=== PATIENT | female | born 1985 | race Two or more races ===

== ENCOUNTER 2024-10-07 13:39 | Emergency (ER) | payer MEDICAID, SELFPAY ==
[2024-10-07 13:40] VITALS: BMI 17.9
[2024-10-07 13:54] VITALS: BP 130/91; PULSE 110; RESP 18; TEMP 37.2; O2SAT 99
--- NOTE | 2024-10-07 14:07 | PD.EDURI ---
Upper Respiratory Inf. RME/HPI General Stated Complaint: Migraine x 2 day, runny nose, nausea, SOB, Time Seen by Provider: 10/07/24 13:58 Arrival date/time: 10/07/24 13:39 39-year-old female presents emergency department with complaints of frontal headache, sinus pressure, sinus pain headache runny nose and bodyaches ongoing for the last 2 days. Patient reports no chance of Limitations: no limitations Related Data Previous Rx's ?Medication ?Instructions ?Recorded naproxen 500 mg tablet 500 mg PO BID PRN pain #30 tabs 01/21/24 rizatriptan 10 mg disintegrating See Rx Instructions PO .COMPLEX 01/21/24 tablet (Maxalt-ELECTROPHYSIOLOGY TECHNOLOGIST) #30 tabs amoxicillin 875 mg-potassium 1 tab PO BID 7 days #14 tabs 10/07/24 clavulanate 125 mg tablet ibuprofen 600 mg tablet 600 mg PO Q6H #30 tabs 10/07/24 Allergies Allergy/AdvReac Type Severity Reaction Status Date / Time No Known Allergies Allergy Verified 03/20/24 18:02 Review of Systems Review of Systems Systems Reviewed: All systems reviewed, normal except as documented Constitutional Constitutional: Reports system reviewed and no additional complaints, except as documented, Denies fever(s) and Reports headache(s) Eyes Eyes: Reports system reviewed and no additional complaints, except as documented and Denies blurry vision ENT Ears, Nose, Mouth, and Throat: Reports system reviewed and no additional complaints, except as documented, Reports headache(s), Reports nasal congestion and Reports nasal discharge Cardiovascular Cardiovascular: Reports system reviewed and no additional complaints, except as documented, Denies chest pain and Denies dyspnea Respiratory Respiratory: Reports system reviewed and no additional complaints, except as documented, Denies chest congestion, Denies cough and Denies dyspnea Gastrointestinal Gastrointestinal: Reports system reviewed and no additional complaints, except as documented and Denies abdominal pain Integumentary/Breasts Skin/Breast: Reports system reviewed and no additional complaints, except as documented and Denies rash Neurologic Neurologic: Reports system reviewed and no additional complaints, except as documented, Reports as per HPI and Reports headache(s) Past Medical History Past Medical History CARDIAC: Negative Congestive Heart Failure RESPIRATORY: Positive Asthma; Negative Chronic Obstructive Pulmonary Disease (COPD) GENITOURINARY: Negative Renal Disease ENDOCRINE: Negative Diabetes Mellitus Type 1 or Diabetes Mellitus Type 2 Social History SMOKING STATUS: Never smoker SUBSTANCE USE: does not use ED Exam General Limitations: Present no limitations General appearance: Present alert and in no apparent distress Head Head exam: Present atraumatic, normocephalic and normal inspection Eye Eye exam: Present normal appearance, PERRL and EOMI; Absent conjunctival injection ENT ENT exam: Present mucous membranes moist Expanded ENT Exam Nose exam: Present sinus tenderness Throat exam: Absent tonsillar erythema or tonsillomegaly Neck Neck exam: Present normal inspection, full ROM and trachea midline Chest Chest inspection: Present normal inspection and symmetric chest wall rise Respiratory Respiratory exam: Present normal lung sounds bilaterally; Absent respiratory distress Cardiovascular Cardiovascular exam: Present regular rate, normal rhythm and normal heart sounds Abdominal Exam Abdominal exam: Present soft and normal bowel sounds; Absent distention, tenderness, guarding, rebound or rigidity Extremities Exam Extremities exam: Present normal inspection and full ROM Back Exam Back exam: Present normal inspection and full ROM Neurological Exam Neurological exam: Present alert, oriented X3 and CN II-XII intact Psychiatric Psychiatric exam: Present normal affect and normal mood Skin Skin exam: Present warm, dry, intact and normal color Course Quality Measures none Orders Category Date Time Status Bedside Influenza A&B Antigen Test NOW Care 10/07/24 13:59 Completed Vital Signs Vital signs: Vital Signs Temperature 98.9 F 10/07/24 13:54 Pulse Rate 110 H 10/07/24 13:54 Respiratory Rate 18 10/07/24 13:54 Blood Pressure 130/91 H 10/07/24 13:54 Pulse Oximetry (%) 99 10/07/24 13:54 Oxygen Delivery Method Room Air 10/07/24 13:54 O2 saturation 99% r/a wnl Upper Respiratory Infection MDM Narrative MDM Narrative:: 39-year-old female presents emergency department with complaints of frontal headache, sinus pressure, sinus pain headache runny nose and bodyaches ongoing for the last 2 days. Patient reports no chance of On exam patient well-appearing patient does not appear ill or toxic in no acute distress Patient checked for flu which came back negative Symptoms consistent with viral illness and also patient appears to have frontal sinusitis based on exam Patient will be treated course of antibiotics and pain medication Patient discharged home in no distress to follow-up with primary care doctor in the next 24 to 48 hours and for any worsening symptoms to return to the ER immediately Patient data External records reviewed:: [facility] previous records Clinical information provided by:: patient Social determinants that could affect healthcare access:: none Patient has the following chronic illnesses:: None How is presenting disease/condition affected by chronic disease/condition?: no chronic disease Evaluation data The following diagnostics were reviewed and interpreted by me:: lab results Lab and/or radiology exams considered but not ordered:: Lab obtained Interpretation Summary: Reviewed by me Medications / Prescriptions Medications or Prescriptions considered but not ordered:: Given Medication administrations:: Given Consultations Consultation(s) initiated? (list below): No Diagnosis Upper Respiratory Differential Diagnosis: upper respiratory infection, sinusitis, viral infection and pharyngitis Most likely diagnosis given after review of the tests above:: Viral illness Admission Indicated Admission indicated?: not indicated Admission Request Was there a request for admission?: No Disposition Plan Disposition Plan: Discharge Discharge Attestation Discharge Attestation: The patient and all family members were given an opportunity to ask questions and understood the discharge instructions. Discharge instructions specifically effects, indications for sooner follow up or return to the emergency department, and the expected course of current diagnosis. Patient condition: Stable Discharge Plan Plan Patient Disposition: HOME (Self Care) Disposition Comment: Stable Prescriptions/Referrals Prescriptions/Med Rec: New ibuprofen 600 mg tablet 600 mg PO Q6H Qty: 30 0RF amoxicillin-pot clavulanate 875-125 mg tablet 1 tab PO BID 7 Days Qty: 14 0RF No Action rizatriptan [Maxalt-ELECTROPHYSIOLOGY TECHNOLOGIST] 10 mg tablet,disintegrating See Rx Instructions .ROUTE .COMPLEX Qty: 30 0RF Rx Instructions: take 1 tab at onset of headache; if no relief may repeat 1 tab after at least 2 hrs; max = 3 tabs/24 hr naproxen 500 mg tablet 500 mg PO BID PRN (Reason: pain) Qty: 30 0RF Problem List Clinical Impression: Acute frontal sinusitis Patient/Caregiver Discharge Instructions Education Materials: Causes of Sinusitis Additional Instructions: Please follow up with your primary care doctor in the next 24-48hrs for any worsening symptoms return here immediately Print Language: Tunisian Stand Alone Forms: Renetta Award Info., Patient Portal Info Letter PA/PULL UP HAND Supervising Physician PA/PULL UP HAND Supervising Physician: Dr calix
== END 2024-10-07 14:15 | disposition home or self-care (01) ==
LOC: SERX 14:20
PROVIDERS: Emergency Provider Emergency Medicine; PCP Family Medicine
DX: J01.10 Acute frontal sinusitis, unspecified (principal)
CPT/HCPCS: 87400; 99283

== ENCOUNTER 2024-11-06 08:18 | Emergency (ER) | payer MEDICAID, SELFPAY ==
[2024-11-06 08:28] VITALS: BP 123/82; PULSE 108; RESP 20; TEMP 37.2; O2SAT 96; BMI 25.0
--- NOTE | 2024-11-06 08:33 | PD.EDURI ---
Upper Respiratory Inf. RME/HPI General Chief Complaint: Flu Like Symptoms Stated Complaint: FLU SYMPTOMS FEVER 99.1 Time Seen by Provider: 11/06/24 08:19 Arrival date/time: 11/06/24 08:18 39-year-old female presents emergency department complains of cough, congestion, body aches and fever patient for symptoms ongoing for last few days there are no other associated symptoms or aggravating factors no other modifying factors, patient denies taking medication before coming to ER today. Patient reports that her significant other tested positive for influenza yesterday Limitations: no limitations Related Data Previous Rx's ?Medication ?Instructions ?Recorded naproxen 500 mg tablet 500 mg PO BID PRN pain #30 tabs 01/21/24 rizatriptan 10 mg disintegrating See Rx Instructions PO .COMPLEX 01/21/24 tablet (Maxalt-INSTRUMENT ASSEMBLER) #30 tabs ibuprofen 600 mg tablet 600 mg PO Q6H #30 tabs 10/07/24 benzonatate 100 mg capsule 100 mg PO TID #14 caps 11/06/24 ibuprofen 600 mg tablet 600 mg PO Q6H #30 tabs 11/06/24 Allergies Allergy/AdvReac Type Severity Reaction Status Date / Time No Known Allergies Allergy Verified 11/06/24 08:20 Review of Systems Review of Systems Systems Reviewed: All systems reviewed, normal except as documented Constitutional Constitutional: Reports system reviewed and no additional complaints, except as documented, Reports body ache(s), Reports chills, Denies fever(s) and Reports headache(s) Eyes Eyes: Reports system reviewed and no additional complaints, except as documented and Denies blurry vision ENT Ears, Nose, Mouth, and Throat: Reports system reviewed and no additional complaints, except as documented, Reports headache(s), Reports nasal congestion and Reports nasal discharge Cardiovascular Cardiovascular: Reports system reviewed and no additional complaints, except as documented, Denies chest pain and Denies dyspnea Respiratory Respiratory: Reports system reviewed and no additional complaints, except as documented, Reports chest congestion, Reports cough and Denies dyspnea Gastrointestinal Gastrointestinal: Reports system reviewed and no additional complaints, except as documented and Denies abdominal pain Integumentary/Breasts Skin/Breast: Reports system reviewed and no additional complaints, except as documented and Denies rash Neurologic Neurologic: Reports system reviewed and no additional complaints, except as documented, Reports as per HPI and Reports headache(s) Past Medical History Past Medical History CARDIAC: Negative Congestive Heart Failure RESPIRATORY: Positive Asthma; Negative Chronic Obstructive Pulmonary Disease (COPD) GENITOURINARY: Negative Renal Disease ENDOCRINE: Negative Diabetes Mellitus Type 1 or Diabetes Mellitus Type 2 Social History SMOKING STATUS: Smoker, status unknown SUBSTANCE USE: does not use ED Exam General Limitations: Present no limitations General appearance: Present alert and in no apparent distress Head Head exam: Present atraumatic, normocephalic and normal inspection Eye Eye exam: Present normal appearance, PERRL and EOMI; Absent conjunctival injection ENT ENT exam: Present normal exam, normal oropharynx and mucous membranes moist Neck Neck exam: Present normal inspection, full ROM and trachea midline; Absent tenderness, meningismus or lymphadenopathy Chest Chest inspection: Present normal inspection and symmetric chest wall rise Respiratory Respiratory exam: Present normal lung sounds bilaterally Cardiovascular Cardiovascular exam: Present regular rate, normal rhythm and normal heart sounds Abdominal Exam Abdominal exam: Present soft and normal bowel sounds; Absent distention, tenderness, guarding, rebound or rigidity Extremities Exam Extremities exam: Present normal inspection and full ROM Back Exam Back exam: Present normal inspection and full ROM Neurological Exam Neurological exam: Present alert, oriented X3 and CN II-XII intact Psychiatric Psychiatric exam: Present normal affect and normal mood Skin Skin exam: Present warm, dry, intact and normal color Course Quality Measures none Vital Signs Vital signs: Vital Signs Temperature 98.9 F 11/06/24 08:28 Pulse Rate 108 H 11/06/24 08:28 Respiratory Rate 20 11/06/24 08:28 Blood Pressure 123/82 11/06/24 08:28 Pulse Oximetry (%) 96 11/06/24 08:28 Oxygen Delivery Method Room Air 11/06/24 08:28 O2 saturation 96% on room air within normal limits Upper Respiratory Infection MDM Narrative MDM Narrative:: 39-year-old female presents emergency department complains of cough, congestion, body aches and fever patient for symptoms ongoing for last few days there are no other associated symptoms or aggravating factors no other modifying factors, patient denies taking medication before coming to ER today. Patient reports that her significant other tested positive for influenza yesterday On exam patient does not appear ill or toxic patient reports no significant medical problems patient reports not Patient symptoms highly consistent with viral illness I suspect patient has flu Patient checked for influenza Patient tested positive for influenza Patient discharged home in no distress to follow-up with primary care doctor in the next 24 to 48 hours and for any worsening symptoms to return to the ER immediately Patient data External records reviewed:: [facility] previous records Clinical information provided by:: patient Social determinants that could affect healthcare access:: none Patient has the following chronic illnesses:: None How is presenting disease/condition affected by chronic disease/condition?: no chronic disease Evaluation data The following diagnostics were reviewed and interpreted by me:: lab results Lab and/or radiology exams considered but not ordered:: Lab obtain Interpretation Summary: Reviewed by me Medications / Prescriptions Medications or Prescriptions considered but not ordered:: Given Medication administrations:: Given Consultations Consultation(s) initiated? (list below): No Diagnosis Upper Respiratory Differential Diagnosis: upper respiratory infection, otitis media, sinusitis and viral infection Most likely diagnosis given after review of the tests above:: URI Admission Indicated Admission indicated?: not indicated Admission Request Was there a request for admission?: No Disposition Plan Disposition Plan: Discharge Discharge Attestation Discharge Attestation: The patient and all family members were given an opportunity to ask questions and understood the discharge instructions. Discharge instructions specifically effects, indications for sooner follow up or return to the emergency department, and the expected course of current diagnosis. Patient condition: Stable Discharge Plan Plan Patient Disposition: HOME (Self Care) Disposition Comment: Stable Prescriptions/Referrals Prescriptions/Med Rec: New benzonatate 100 mg capsule 100 mg PO TID Qty: 14 0RF ibuprofen 600 mg tablet 600 mg PO Q6H Qty: 30 0RF No Action rizatriptan [Maxalt-INSTRUMENT ASSEMBLER] 10 mg tablet,disintegrating See Rx Instructions .ROUTE .COMPLEX Qty: 30 0RF Rx Instructions: take 1 tab at onset of headache; if no relief may repeat 1 tab after at least 2 hrs; max = 3 tabs/24 hr naproxen 500 mg tablet 500 mg PO BID PRN (Reason: pain) Qty: 30 0RF ibuprofen 600 mg tablet 600 mg PO Q6H Qty: 30 0RF Problem List Clinical Impression: Influenza Patient/Caregiver Discharge Instructions Education Materials: ED Influenza (Adult) Additional Instructions: Please follow up with your primary care doctor in the next 24-48hrs for any worsening symptoms return here immediately Print Language: Kinyarwanda Stand Alone Forms: Renetta Award Info., Patient Portal Info Letter PA/PRINT SHOP ASSISTANT Supervising Physician PA/PRINT SHOP ASSISTANT Supervising Physician: kevin
== END 2024-11-06 10:23 | disposition home or self-care (01) ==
LOC: SERX 08:37
PROVIDERS: Emergency Provider Emergency Medicine; PCP Family Medicine
DX: J11.1 Influenza due to unidentified influenza virus with other respiratory manifestations (principal)
CPT/HCPCS: 99281

== ENCOUNTER 2025-04-16 18:38 | Emergency (ER) | payer MEDICAID, SELFPAY ==
[2025-04-16 18:39] VITALS: BMI 24.3
[2025-04-16 19:19] VITALS: BP 125/82; PULSE 89; RESP 20; TEMP 36.9; O2SAT 98
--- NOTE | 2025-04-16 19:23 | PD.EDEYE ---
ED Eye Problem RME/HPI General Chief complaint: Eye Problems Stated complaint: EYES ARE IRRITATED, DIFFICULTY SEEING Time Seen by Provider: 04/16/25 19:17 Arrival date/time: 04/16/25 18:38 39F with history of homelessness and psych presents to ED with 1 day of bilateral eye redness and irritation. Patient wears contacts and denies discharge. Some itching. Limitations: no limitations Related Data Previous Rx's ?Medication ?Instructions ?Recorded naproxen 500 mg tablet 500 mg PO BID PRN pain #30 tabs 01/21/24 rizatriptan 10 mg disintegrating See Rx Instructions PO .COMPLEX 01/21/24 tablet (Maxalt-HEAD OF HOUSEKEEPING) #30 tabs ibuprofen 600 mg tablet 600 mg PO Q6H #30 tabs 10/07/24 benzonatate 100 mg capsule 100 mg PO TID #14 caps 11/06/24 ibuprofen 600 mg tablet 600 mg PO Q6H #30 tabs 11/06/24 tobramycin 0.3 % eye drops 2 drp ophthalmic (eye) Q6H 1 week 04/16/25 #5 mL Allergies Allergy/AdvReac Type Severity Reaction Status Date / Time No Known Allergies Allergy Verified 04/16/25 18:41 Review of Systems Review of Systems Systems Reviewed: All systems reviewed, normal except as documented Constitutional Constitutional: Reports system reviewed and no additional complaints, except as documented, Denies fever(s) and Denies headache(s) ENT Ears, Nose, Mouth, and Throat: Denies disequilibrium and Denies headache(s) Cardiovascular Cardiovascular: Reports system reviewed and no additional complaints, except as documented, Denies chest pain and Denies dyspnea Respiratory Respiratory: Reports system reviewed and no additional complaints, except as documented, Denies cough and Denies dyspnea Gastrointestinal Gastrointestinal: Reports system reviewed and no additional complaints, except as documented, Denies abdominal pain, Denies nausea and Denies vomiting Neurologic Neurologic: Reports system reviewed and no additional complaints, except as documented, Denies confusion, Denies disequilibrium and Denies headache(s) Psychiatric Psychiatric: Denies confusion Past Medical History Past Medical History CARDIAC: Negative Congestive Heart Failure RESPIRATORY: Positive Asthma; Negative Chronic Obstructive Pulmonary Disease (COPD) GENITOURINARY: Negative Renal Disease ENDOCRINE: Negative Diabetes Mellitus Type 1 or Diabetes Mellitus Type 2 Social History SMOKING STATUS: Former smoker SUBSTANCE USE: does not use ED Exam General Limitations: Present no limitations General appearance: Present alert and in no apparent distress Head Head exam: Present atraumatic Eye Eye exam: Present PERRL and EOMI Expanded Eye Exam Sclera/Conjunctival: bilateral: injection (mild) ENT ENT exam: Present normal exam, normal oropharynx and mucous membranes moist Neck Neck exam: Present normal inspection, full ROM and trachea midline Chest Chest inspection: Present normal inspection and symmetric chest wall rise Respiratory Respiratory exam: Present normal lung sounds bilaterally Cardiovascular Cardiovascular exam: Present regular rate, normal rhythm and normal heart sounds Abdominal Exam Abdominal exam: Present soft and normal bowel sounds Extremities Exam Extremities exam: Present normal inspection and full ROM Back Exam Back exam: Present normal inspection and full ROM Neurological Exam Neurological exam: Present alert, oriented X3 and CN II-XII intact Psychiatric Psychiatric exam: Present normal affect and normal mood Skin Skin exam: Present warm, dry, intact and normal color Course Quality Measures none Orders Category Date Time Status ED Eye Irrigation ONCE Care 04/16/25 20:02 Active Castro Lamp to Bedside X1 Care 04/16/25 19:21 Active Erythromycin Op Oint 0.5% Med 04/16/25 19:21 Discontinued 1 gm BOTH EYES X1 ONE Fluorescein Sodium [Bio-Radha] Med 04/16/25 19:21 Discontinued 1 mg BOTH EYES X1 ONE Tobramycin Op Cassidy 0.3% [Tobrex Op Cassidy 0.3%] Med 04/16/25 20:06 Discontinued See Dose Instructions BOTH EYES X1 ONE Vital Signs Vital signs: Vital Signs Temperature 98.4 F 04/16/25 19:19 Pulse Rate 89 04/16/25 19:19 Respiratory Rate 20 04/16/25 19:19 Blood Pressure 125/82 04/16/25 19:19 Pulse Oximetry (%) 98 04/16/25 19:19 Oxygen Delivery Method Room Air 04/16/25 19:19 O2 at 98% on RA and WNLs Eye MDM Narrative MDM Narrative:: 39F with history of homelessness and psych presents to ED with 1 day of bilateral eye redness and irritation. Patient wears contacts and denies discharge. Some itching. Physical exam reveals bilateral red eyes, but no drainage/discharge. Normal pupil response and EOM. Patient is afebrile, alert, calm, and on a video chat phone call. Wood's lamp exam reveals no obvious abnormality. Eyes irrigated and patient felt better. Meds and day camp counselor given. Patient data External records reviewed:: [facility] previous records Clinical information provided by:: patient Social determinants that could affect healthcare access:: housing Patient has the following chronic illnesses:: homelessness and psych How is presenting disease/condition affected by chronic disease/condition?: exacerbated by Evaluation data The following diagnostics were reviewed and interpreted by me:: other (specify) (none) Lab and/or radiology exams considered but not ordered:: not ordered Interpretation Summary: n/a Medications / Prescriptions Medications or Prescriptions considered but not ordered:: ordered Medication administrations:: Medication Administration History Discontinued Medications Erythromycin (Erythromycin Op Oint 0.5% 1 Gm Packet) 1 gm BOTH EYES X1 ONE Stop: 04/16/25 19:22 Last Admin: 04/16/25 19:50 Dose: 1 gm Documented By: ERASMO Co-signed By: ZAN Fluorescein Sodium (Fluorescein Sod 1 Mg Strp) 1 mg BOTH EYES X1 ONE Stop: 04/16/25 19:22 Last Admin: 04/16/25 19:50 Dose: 1 mg Documented By: ERASMO Tobramycin Sulfate (Tobramycin Op Cassidy 0.3% 5 Ml Btl) 0 drop BOTH EYES X1 ONE Stop: 04/16/25 20:07 Last Admin: 04/16/25 20:27 Dose: 75 drop Documented By: above Consultations Consultation(s) initiated? (list below): No Diagnosis Eye Problem Differential Diagnosis: corneal abrasion, conjunctivitis, acute iritis, hyphema, periorbital cellulitis, subconjunctival hemorrhage, glaucoma, corneal ulcer and ruptured globe Most likely diagnosis given after review of the tests above:: eye irritation Admission Indicated Admission indicated?: not indicated Admission Request Was there a request for admission?: No Disposition Plan Disposition Plan: Discharge Discharge Attestation Discharge Attestation: The patient and all family members were given an opportunity to ask questions and understood the discharge instructions. Discharge instructions specifically effects, indications for sooner follow up or return to the emergency department, and the expected course of current diagnosis. Patient condition: Stable Discharge Plan Plan Patient Disposition: HOME (Self Care) Discharge Disposition comment: Stable Prescriptions/Referrals Prescriptions/Med Rec: New tobramycin 0.3 % drops 2 drp ophthalmic (eye) Q6H 7 Days Qty: 5 0RF No Action rizatriptan [Maxalt-HEAD OF HOUSEKEEPING] 10 mg tablet,disintegrating See Rx Instructions .ROUTE .COMPLEX Qty: 30 0RF Rx Instructions: take 1 tab at onset of headache; if no relief may repeat 1 tab after at least 2 hrs; max = 3 tabs/24 hr naproxen 500 mg tablet 500 mg PO BID PRN (Reason: pain) Qty: 30 0RF ibuprofen 600 mg tablet 600 mg PO Q6H Qty: 30 0RF benzonatate 100 mg capsule 100 mg PO TID Qty: 14 0RF ibuprofen 600 mg tablet 600 mg PO Q6H Qty: 30 0RF Referrals: Blayne Ramos MD [Primary Care Provider] - In 1 week Problem List Clinical Impression: Eye irritation Clinical Impression: (Ruled Out): Periorbital cellulitis Patient/Caregiver Discharge Instructions Education Materials: ED Conjunctivitis, Nonspecific Additional Instructions: Please follow-up with PCP within 24-48 hours and return immediately if symptoms worsen. Stop using drop if worsening irritation. Print Language: Belarusian Stand Alone Forms: Patient Portal Info Letter JASPER/BEENA Supervising Physician JASPER/BEENA Supervising Physician: Dr. Johnston
[2025-04-16] MEDS: FLUORESCEIN SOD 1 MG STRP BOTH EYES (19:50)
[2025-04-16] MEDS: Erythromycin Op Oint 0.5% 1 GM PACKET BOTH EYES (19:50)
[2025-04-16] MEDS: TOBRAMYCIN OP SOL 0.3% 5 ML BTL BOTH EYES (20:27)
== END 2025-04-16 21:02 | disposition home or self-care (01) ==
PROVIDERS: Emergency Provider Emergency Medicine; PCP Family Medicine
DX: H57.89 Other specified disorders of eye and adnexa (principal); Z59.00 Homelessness unspecified
CPT/HCPCS: 99283; A9270

== ENCOUNTER 2025-05-05 01:18 | Emergency (ER) | payer MEDICAID, SELFPAY ==
[2025-05-05 01:19] VITALS: BMI 24.3
[2025-05-05 02:17] VITALS: BP 114/75; PULSE 109; RESP 20; TEMP 37; O2SAT 98
--- NOTE | 2025-05-05 02:27 | EKG_ITS ---
[facility] Test Date: 2025-05-05 Pat Name: DAVI JOAQUIN Department: Room: - Gender: Female Review Scheduling Coordinator: : 1985 Requested By: Santy Swift Order Number: [id number] Reading MD: Santy Swift Measurements Intervals [place] Rate: 77 P: 89 UT: 153 QRS: 67 QRSD: 85 T: 63 QT: 386 QTc: 439 Interpretive Statements SINUS RHYTHM No previous ECG available for comparison /store/S0/[id number]/ecg/[id number]
--- NOTE | 2025-05-05 02:27 | PD.EDRME ---
Rapid Medical Screening Exam RME Arrival date/time: 05/05/25 01:18 This is a case of 39-year-old female with history of anemia and previous blood transfusion came in in the emergency room due to dizziness and general weakness for 1 week worsening symptoms this patient decided to sought consult here in the emergency Chief Complaint: Dizziness Vital signs: Vital Signs Temperature 98.6 F 05/05/25 02:17 Pulse Rate 109 H 05/05/25 02:17 Respiratory Rate 20 05/05/25 02:17 Blood Pressure 114/75 05/05/25 02:17 Pulse Oximetry (%) 98 05/05/25 02:17 Oxygen Delivery Method Room Air 05/05/25 02:17
--- NOTE | 2025-05-05 02:40 | EDNOTE_ITS ---
ED Dizzyness RME/HPI General Chief Complaint: Dizziness Stated Complaint: LOW ON IRON, DIZZINESS, FEEL TIRED Arrival date/time: 05/05/25 01:18 RME / HPI RME / HPI Narrative: 05/05/25 01:18 This is a case of 39-year-old female with history of anemia and previous blood transfusion came in in the emergency room due to dizziness and general weakness for 1 week worsening symptoms this patient decided to sought consult here in the emergency 39 y/o female with Hx of Anemia presents to ED c/o dizziness and headache x 2 days. Headache has ressolved. Denies any general pain. No other concerns or complaints expressed at ths time. Related Data Previous Rx's ?Medication ?Instructions ?Recorded naproxen 500 mg tablet 500 mg PO BID PRN pain #30 t abs 01/21/24 rizatriptan 10 mg disintegrating See Rx Instructions P O .COMPLEX 01/21/24 tablet (Maxalt-REGISTERED RESPIRATORY TECHNICIAN) #30 tabs ibuprofen 600 mg tablet 600 mg PO Q6H #30 tabs 10/07 benzonatate 100 mg capsule 100 mg PO TID #14 caps 10/14 02/03 ibuprofen 600 mg tablet 600 mg PO Q6H #30 tabs 11/06 Allergies Allergy/AdvReac Type Severity Reaction Status Date / Time No Known Allergies Allergy Verified 05/05/25 01:19 Review of Systems Review of Systems Systems Reviewed: All systems reviewed, normal except as documented Past Medical History Past Medical History RESPIRATORY: Positive Asthma HEMATOLOGIC: Positive Anemia ED Exam Narrative Physical exam: Generally patient is alert oriented x 3 in no obvious distress, heart regular rate and rhythm, lungs clear to auscultation equal bilaterally, abdomen soft bowel sounds present nondistended nontender, neurologic exam no focal motor deficits. No ataxia. Course Quality Measures none Orders Category Date Time Status EKG (ED ONLY) *Do not use* NOW Care 05/05/25 02:27 Completed EKG (ED Only) Stat Exams 05/05/25 02:27 Draft CBC Stat Lab 05/05/25 02:43 Completed CMP [Comprehensive Metabolic Panel] Stat Lab 05/05/25 02:43 Completed Drug Screen,Urine Stat Lab 05/05/25 02:37 Ordered HCG,Qualitative Serum Stat Lab 05/05/25 02:43 Completed Type and Screen Stat Lab 05/05/25 02:43 Received Urinalysis Stat Lab 05/05/25 02:47 Completed Vital Signs Vital signs: Vital Signs Temperature 98.6 F 05/05/25 02:17 Pulse Rate 109 H 05/05/25 02:17 Respiratory Rate 20 05/05/25 02:17 Blood Pressure 114/75 05/05/25 02:17 Pulse Oximetry (%) 98 05/05/25 02:17 Oxygen Delivery Method Room Air 05/05/25 02:17 Dizziness MDM Narrative MDM Narrative:: Scribe Attestation: I, Conchis Felix, am scribing for and in the presence of Dr. Blair. Provider Notation: Although this document has been carefully reviewed, there may still be some phonetic and other typographical errors. These errors are purely grammatical due to imperfections in the software program and should not be construed in any way to? compromise the substance of the patient's medical care during this visit. I interpreted her labs. Hemoglobin is 11.3. is negative. Patient admits to recently doing methamphetamine. This is most likely the cause of the patient's dizziness. Patient will be discharged in stable condition. Patient data External records reviewed:: [facility] previous records (Reviewed prior ED records from 04/16/25. Patient was seen for Eye irritation.) Clinical information provided by:: patient Social determinants that could affect healthcare access:: none Patient has the following chronic illnesses:: Anemia How is presenting disease/condition affected by chronic disease/condition?: exacerbated by Evaluation data The following diagnostics were reviewed and interpreted by me:: lab results and EKG tracing(s) Lab and/or radiology exams considered but not ordered:: None Interpretation Summary: See MDM above Medications / Prescriptions Medications or Prescriptions considered but not ordered:: None Medication administrations:: See above if any Consultations Consultation(s) initiated? (list below): No Diagnosis Dizziness Differential Diagnosis: adverse reaction to drug, benign paroxysmal positional vertigo, orthostatic hypotension, vertebral basilar insufficiency, acute vestibular neuronitis and other (Anemia) Most likely diagnosis given after review of the tests above:: None Admission Indicated Admission indicated?: not indicated Explain why admission is indicated or not indicated:: Patient does not meet admission criteria Admission Request Was there a request for admission?: No Disposition Plan Disposition Plan: Discharge Discharge Attestation Discharge Attestation: The patient and all family members were given an opportunity to ask questions and understood the discharge instructions. Discharge instructions specifically effects, indications for sooner follow up or return to the emergency department, and the expected course of current diagnosis. Patient condition: Stable Discharge Plan Plan Patient Disposition: HOME (Self Care) Prescriptions/Referrals Prescriptions/Med Rec: No Action rizatriptan [Maxalt-REGISTERED RESPIRATORY TECHNICIAN] 10 mg tablet,disintegrating See Rx Instructions .ROUTE .COMPLEX Qty: 30 0RF Rx Instructions: take 1 tab at onset of headache; if no relief may repeat 1 tab after at least 2 hrs; max = 3 tabs/24 hr naproxen 500 mg tablet 500 mg PO BID PRN (Reason: pain) Qty: 30 0RF ibuprofen 600 mg tablet 600 mg PO Q6H Qty: 30 0RF benzonatate 100 mg capsule 100 mg PO TID Qty: 14 0RF ibuprofen 600 mg tablet 600 mg PO Q6H Qty: 30 0RF Referrals: No Primary/Family,Physician [Primary Care Provider] - In 1 week Problem List Clinical Impression: Methamphetamine abuse Patient/Caregiver Discharge Instructions Education Materials: Understanding Methamphetamine ... Additional Instructions: Stop using methamphetamine. Print Language: Nepali Stand Alone Forms: Renetta Award Info., Patient Portal Info Letter
[2025-05-05 02:51] LABS: Basophils # (Auto) 0.0 Thou/mm3 (0.0-0.2); Basophils % (Auto) 1 % (0-2.5); Eosinophils # (Auto) 0.2 Thou/mm3 (0.0-0.5); Eosinophils % (Auto) 3 % (0-10); Hematocrit 34.6 % (36.0-46.0); Hemoglobin 11.3 g/dL (12.0-16.0); Immature Granulocytes Auto 0.01 Thou/mm3 (0.00-0.00); Lymphocytes # (Auto) 2.7 Thou/mm3 (1.0-4.8); Lymphocytes % (Auto) 45 % (10-50); Mean Corpuscular HGB Conc 32.7 g/dl (31.0-37.0); Mean Corpuscular Hemoglobin 27.8 pg (25.0-35.0); Mean Corpuscular Volume 85 fL (80-100); Monocytes # (Auto) 0.5 Thou/mm3 (0.0-0.8); Monocytes % (Auto) 9 % (0-12); Neutrophils # (Auto) 2.7 Thou/mm3 (1.8-7.7); Neutrophils % (Auto) 43 % (37-80); Nucleated Red Blood Cell # 0.00 Thou/mm3 (0.00-0.00); Nucleated Red Blood Cell % 0 /100 WBC (0); Platelet Count 276 Thou/mm3 (140-440); RDW Standard Deviation 47.6 fL (36.4-46.3); Red Blood Count 4.06 Miln/mm3 (4.00-5.20); White Blood Count 6.2 Thou/mm3 (3.6-11.0)
[2025-05-05 02:58] LABS: Collection Type, Urine Voided
[2025-05-05 03:12] LABS: Bilirubin,Urine Negative (Negative); Blood,Urine Negative (Negative); Clarity,Urine Turbid (Clear/Hazy); Color,Urine Yellow (Lt Yel-Yel); Glucose, Urine Negative (Negative); Ketones,Urine Trace (Negative); Leukocyte Esterase,Urine Positive (Negative); Nitrite,Urine Positive (Negative); PH,Urine 6.0 (5.0-7.0); Protein,Urine Trace (Neg - Trace); RBC,Urine 18 /hpf (0-3); Specific Gravity,Urine 1.034 (1.001-1.035); Squamous Epithelial Cell,Urine 4 /hpf (0-5); Urobilinogen,Urine Negative mg/dL (0.0-1.0); WBC,Urine 10 /hpf (0-5)
[2025-05-05 03:20] LABS: Alanine Aminotransferase 9 U/L (10-49); Albumin, Serum 4.3 gm/dL (3.5-5.0); Albumin/Globulin Ratio 1.7 (1.2-2.2); Alkaline Phosphatase 55 U/L (46-116); Anion Gap 8 (7-16); Aspartate Amino Transferase 18 U/L (0-34); BUN/Creatinine Ratio 15 Ratio (12-20); Bilirubin,Total 0.4 mg/dL (0.3-1.2); Blood Urea Nitrogen 12 mg/dL (9-23); Calcium 9.6 mg/dL (8.3-10.6); Calcium (Corrected) 9.6 mg/dL (8.5-10.1); Carbon Dioxide 24.7 mMol/L (20.0-31.0); Chloride 109 mMol/L (98-107); Creatinine (Component) 0.8 mg/dL (0.6-1.3); Estimated Creatinine Clearance 96.2 mL/min (>60); Globulin 2.5 gm/dL (2.3-3.5); Glucose 93 mg/dL (74-106); Osmolality,Calculated 282 (275-295); Potassium 4.2 mMol/L (3.4-5.1); Sodium 142 mMol/L (136-145); Total Protein 6.8 gm/dL (5.7-8.2); eGFR > 60 See Note
[2025-05-05 03:22] LABS: HCG,Qualitative Serum Negative
[2025-05-05 03:31] VITALS: BP 115/81; PULSE 69; RESP 17; TEMP 36.9; O2SAT 99
== END 2025-05-05 03:35 | disposition home or self-care (01) ==
PROVIDERS: Nurse Practitioner Family; Emergency Provider Emergency Medicine; PCP Family Medicine
DX: F15.10 Other stimulant abuse, uncomplicated (principal)
CPT/HCPCS: 36415; 80053; 80307; 81001; 84703; 85025; 86850; 86900; 86901; 93005; 99283

== ENCOUNTER 2025-05-16 13:12 | Emergency (ER) | payer MEDICAID, SELFPAY ==
[2025-05-16 13:14] VITALS: BMI 25.0
--- NOTE | 2025-05-16 13:16 | EKG_ITS ---
[facility] Test Date: 2025-05-16 Pat Name: DAVI JOAQUIN Department: Room: - Gender: Female [employer]: : 1985 Requested By: ED Temporary Provider Order Number: [id number] Reading MD: ED Temporary Provider Measurements Intervals [place] Rate: 72 P: 70 OH: 142 QRS: 68 QRSD: 93 T: 65 QT: 416 QTc: 455 Interpretive Statements SINUS RHYTHM Compared to ECG 05/05/2025 02:43:01 No significant changes /store/S0/[id number].pdf
[2025-05-16 13:40] VITALS: BP 127/88; PULSE 76; RESP 18; TEMP 36.8; O2SAT 100
--- NOTE | 2025-05-16 13:47 | XR_ITS ---
Examination: PA chest single view TECHNIQUE: Upright PA chest single view Date and time: May 16, 2025 1354 hours INDICATIONS: Irregular heartbeat cardiac arrhythmia noticed beginning 3 days ago. FINDINGS: Normal heart size. The lungs are clear. The osseous structures are intact IMPRESSION: No active disease.
--- NOTE | 2025-05-16 13:47 | XR_ITS ---
Examination: OB Transvaginal ultrasound of the pelvis, complete Technique: Transvaginal sonographic images pelvis performed using hoffman scale imaging Exam date and time: May 16, 2025 1434 hours INDICATIONS: Dizziness today, early by history Findings: Uterus 8.5 cm endometrial stripe 1.6 cm No uterine mass or intrauterine gestation Right ovary 3.5 cm arterial flow 21 x 18 mm cyst Left ovary 2.4 cm arterial flow Endometrial stripe 16mm IMPRESSION: No uterine mass or intrauterine gestation
--- NOTE | 2025-05-16 13:48 | PD.EDRME ---
Rapid Medical Screening Exam RME Arrival date/time: 05/16/25 13:12 39-year-old female presents to the emergency department complains of dizziness and fatigue Patient reports currently she is unknown gestation Chief Complaint: Dizziness Vital signs: Vital Signs Temperature 98.2 F 05/16/25 13:40 Pulse Rate 76 05/16/25 13:40 Respiratory Rate 18 05/16/25 13:40 Blood Pressure 127/88 H 05/16/25 13:40 Pulse Oximetry (%) 100 05/16/25 13:40 Oxygen Delivery Method Room Air 05/16/25 13:40
[2025-05-16 14:28] LABS: Collection Type, Urine Clean Catch
[2025-05-16 14:31] LABS: Basophils # (Auto) 0.0 Thou/mm3 (0.0-0.2); Basophils % (Auto) 0 % (0-2.5); Eosinophils # (Auto) 0.1 Thou/mm3 (0.0-0.5); Eosinophils % (Auto) 2 % (0-10); Hematocrit 37.9 % (36.0-46.0); Hemoglobin 12.2 g/dL (12.0-16.0); Immature Granulocytes Auto 0.02 Thou/mm3 (0.00-0.00); Lymphocytes # (Auto) 2.4 Thou/mm3 (1.0-4.8); Lymphocytes % (Auto) 45 % (10-50); Mean Corpuscular HGB Conc 32.2 g/dl (31.0-37.0); Mean Corpuscular Hemoglobin 27.4 pg (25.0-35.0); Mean Corpuscular Volume 85 fL (80-100); Monocytes # (Auto) 0.5 Thou/mm3 (0.0-0.8); Monocytes % (Auto) 10 % (0-12); Neutrophils # (Auto) 2.3 Thou/mm3 (1.8-7.7); Neutrophils % (Auto) 43 % (37-80); Nucleated Red Blood Cell # 0.00 Thou/mm3 (0.00-0.00); Nucleated Red Blood Cell % 0 /100 WBC (0); Platelet Count 312 Thou/mm3 (140-440); RDW Standard Deviation 46.0 fL (36.4-46.3); Red Blood Count 4.46 Miln/mm3 (4.00-5.20); White Blood Count 5.3 Thou/mm3 (3.6-11.0)
[2025-05-16 14:43] LABS: Bacteria,Urine 3+; Bilirubin,Urine Negative (Negative); Blood,Urine Negative (Negative); Color,Urine Yellow (Lt Yel-Yel); Culture Indicated,Urine Contaminated; Glucose, Urine Negative (Negative); Ketones,Urine Negative (Negative); Leukocyte Esterase,Urine Positive (Negative); Nitrite,Urine Positive (Negative); PH,Urine 7.0 (5.0-7.0); Protein,Urine Trace (Neg - Trace); RBC,Urine 19 /hpf (0-3); Specific Gravity,Urine 1.028 (1.001-1.035); Squamous Epithelial Cell,Urine 15 /hpf (0-5); Urobilinogen,Urine Negative mg/dL (0.0-1.0); WBC,Urine 29 /hpf (0-5)
[2025-05-16 14:47] LABS: B-Type Natriuretic Peptide < 20 pg/mL (0-100)
[2025-05-16 14:49] LABS: Alanine Aminotransferase 12 U/L (10-49); Albumin, Serum 4.5 gm/dL (3.5-5.0); Albumin/Globulin Ratio 1.7 (1.2-2.2); Alkaline Phosphatase 65 U/L (46-116); Anion Gap 10 (7-16); Aspartate Amino Transferase 19 U/L (0-34); BUN/Creatinine Ratio 11 Ratio (12-20); Beta HCG,Quantitative < 1 mIU/mL (<5.0); Bilirubin,Total 0.6 mg/dL (0.3-1.2); Blood Urea Nitrogen 10 mg/dL (9-23); Calcium 10.0 mg/dL (8.3-10.6); Calcium (Corrected) 10.0 mg/dL (8.5-10.1); Carbon Dioxide 26.4 mMol/L (20.0-31.0); Chloride 105 mMol/L (98-107); Creatinine (Component) 0.9 mg/dL (0.6-1.3); Estimated Creatinine Clearance 85.5 mL/min (>60); Globulin 2.6 gm/dL (2.3-3.5); Glucose 85 mg/dL (74-106); Magnesium 2.0 mg/dL (1.6-2.6); Osmolality,Calculated 279 (275-295); Potassium 4.2 mMol/L (3.4-5.1); Sodium 141 mMol/L (136-145); Total Protein 7.1 gm/dL (5.7-8.2); Troponin I < 0.002 ng/mL (0.0-0.045); eGFR > 60 See Note
[2025-05-16 14:49] LABS: Clarity,Urine Hazy (Clear/Hazy)
[2025-05-16 14:54] LABS: Amphetamine/Methamp Scrn,U Positive (Negative); Barbiturate Screen,Urine Negative (Negative); Benzodiazepines Screen,Urine Negative (Negative); Benzoylecgonine Screen, Ur Negative (Negative); Fentanyl Screen,Urine Negative (Negative); Opiate Screen,Urine Negative (Negative); THC Screen,Urine Negative (Negative)
--- NOTE | 2025-05-16 15:05 | PD.EDDIZZY ---
ED Dizzyness RME/HPI General Chief Complaint: Dizziness Stated Complaint: DIZZY x 5 MINUTE, STATES HEART BEATING TOO SLOW Arrival date/time: 05/16/25 13:12 Limitations: no limitations RME / HPI RME / HPI Narrative: 05/16/25 13:12 39-year-old female presents to the emergency department complains of dizziness and fatigue Patient reports currently she is unknown gestation DR. GODOY MAIN ED EVALUATION: 39 year old female who is currently (unknown gestational age), LMP 03/31/2025, hypertension, anemia, anxiety presents to the ED for complaint of dizziness today. States she was laying down in bed when her symptoms began. Additionally reports feeling fatigued with exertion that began several days ago which she attributed to possible being anemic. No other associated symptoms reported. Patient mentioned she missed her last menses and took a test at home on 05/06/2025 that was positive. Says she has yet to see OBGYN. No other associated symptoms or complaints reported. Denies fevers, chills, chest pain, cough, shortness of breath, abdominal pain, n/v/d, urinary symptoms, or vaginal bleeding. Related Data Previous Rx's ?Medication ?Instructions ?Recorded naproxen 500 mg tablet 500 mg PO BID PRN pain #30 tabs 01/21/24 rizatriptan 10 mg disintegrating See Rx Instructions PO .COMPLEX 01/21/24 tablet (Maxalt-BRAKE DRUM MOLDER) #30 tabs ibuprofen 600 mg tablet 600 mg PO Q6H #30 tabs 10/07/24 benzonatate 100 mg capsule 100 mg PO TID #14 caps 11/06/24 ibuprofen 600 mg tablet 600 mg PO Q6H #30 tabs 11/06/24 Allergies Allergy/AdvReac Type Severity Reaction Status Date / Time No Known Allergies Allergy Verified 05/16/25 13:16 Review of Systems Review of Systems Systems Reviewed: All systems reviewed, normal except as documented Past Medical History Past Medical History NEUROLOGIC: Positive Migraine CARDIAC: Positive Hypertension RESPIRATORY: Positive Asthma HEMATOLOGIC: Positive Anemia PSYCHO/SOCIAL: Positive Depression and Anxiety OTHER HISTORY: Positive Hospitalization, Blood Transfusions and Anesthesia Reactions Surgical History SURGICAL: Positive Section Social History SMOKING STATUS: Never smoker SUBSTANCE USE: does not use ED Exam General Limitations: Present no limitations General appearance: Present alert and other (appears anxious ) Head Head exam: Present atraumatic, normocephalic and normal inspection Eye Eye exam: Present normal appearance, PERRL and EOMI ENT ENT exam: Present normal exam, normal oropharynx and mucous membranes moist Neck Neck exam: Present normal inspection, full ROM and trachea midline Chest Chest inspection: Present normal inspection and symmetric chest wall rise Respiratory Respiratory exam: Present normal lung sounds bilaterally Cardiovascular Cardiovascular exam: Present regular rate, normal rhythm and normal heart sounds Abdominal Exam Abdominal exam: Present soft and normal bowel sounds Extremities Exam Extremities exam: Present normal inspection and full ROM Back Exam Back exam: Present normal inspection and full ROM Neurological Exam Neurological exam: Present alert, oriented X3 and CN II-XII intact Psychiatric Psychiatric exam: Present anxious Skin Skin exam: Present warm, dry, intact and normal color Course Quality Measures none Orders Category Date Time Status EKG (ED ONLY) *Do not use* NOW Care 05/16/25 13:16 Completed EKG (ED Only) Stat Exams 05/16/25 13:16 Draft US OB transvaginal Stat Exams 05/16/25 13:47 Completed XR chest 1V portable Stat Exams 05/16/25 13:47 Completed B-Type Natriuretic Peptide Stat Lab 05/16/25 14:19 Completed Beta HCG,Quantitative Stat Lab 05/16/25 14:19 Completed CBC Stat Lab 05/16/25 14:19 Completed Comprehensive Metabolic Panel Stat Lab 05/16/25 14:19 Completed Drug Screen,Urine Stat Lab 05/16/25 14:13 Completed Magnesium Stat Lab 05/16/25 14:19 Completed Partial Thromboplastin Time Stat Lab 05/16/25 14:19 Received Prothrombin Time with INR Stat Lab 05/16/25 14:19 Received Troponin I Stat Lab 05/16/25 14:19 Completed Urinalysis, C/S if Indicated Stat Lab 05/16/25 14:13 Completed Vital Signs Vital signs: Vital Signs Temperature 98.2 F 05/16/25 13:40 Pulse Rate 76 05/16/25 13:40 Respiratory Rate 18 05/16/25 13:40 Blood Pressure 127/88 H 05/16/25 13:40 Pulse Oximetry (%) 100 05/16/25 13:40 Oxygen Delivery Method Room Air 05/16/25 13:40 Pulse ox is 100% on room air which is adequate. Dizziness MDM Narrative MDM Narrative:: Alda Gallo, am scribing for and in the presence of Dr. Godoy. The patients urine today is positive for UTI however is contaminated and patient is asymptomatic. Patient data External records reviewed:: [facility] previous records (I reviewed ED visit on 05/05/2025 ) Clinical information provided by:: patient Social determinants that could affect healthcare access:: substance use Patient has the following chronic illnesses:: (unknown gestational age), LMP 03/31/2025, hypertension, anemia, anxiety How is presenting disease/condition affected by chronic disease/condition?: exacerbated by Evaluation data The following diagnostics were reviewed and interpreted by me:: lab results, radiology exam(s) and EKG tracing(s) (EKG @ 13:44 NSR, rate 72, no acute ischemic changes, no STEMI. ) Lab and/or radiology exams considered but not ordered:: None Interpretation Summary: Ordering Physician: Samir Clinton NP, NP Date of Service: 05/16/25 Procedure(s): XR chest 1V portable Accession Number(s): [id number] cc: Samir Clinton NP, NP; Blayne Ramos MD; Yan Wheatley MD~ Examination: PA chest single view TECHNIQUE: Upright PA chest single view Date and time: May 16, 2025 1354 hours INDICATIONS: Irregular heartbeat cardiac arrhythmia noticed beginning 3 days ago. FINDINGS: Normal heart size. The lungs are clear. The osseous structures are intact IMPRESSION: No active disease. Dictated By: Yan Wheatley MD Signed By: <Electronically signed by Yan Wheatley MD in OV> 05/16/25 1440 Ordering Physician: Samir Clinton NP, NP Date of Service: 05/16/25 Procedure(s): US OB transvaginal Accession Number(s): [id number] cc: Oz LEES),Samir ELKINS; Blayne Ramos MD; Yan Wheatley MD~ Examination: OB Transvaginal ultrasound of the pelvis, complete Technique: Transvaginal sonographic images pelvis performed using hoffman scale imaging Exam date and time: May 16, 2025 1434 hours INDICATIONS: Dizziness today, early by history Findings: Uterus 8.5 cm endometrial stripe 1.6 cm No uterine mass or intrauterine gestation Right ovary 3.5 cm arterial flow 21 x 18 mm cyst Left ovary 2.4 cm arterial flow Endometrial stripe 16mm IMPRESSION: No uterine mass or intrauterine gestation Dictated By: Yan Wheatley MD Signed By: <Electronically signed by Yan Wheatley MD in OV> 05/16/25 1510 Medications / Prescriptions Medications or Prescriptions considered but not ordered:: None Medication administrations:: None Consultations Consultation(s) initiated? (list below): No Diagnosis Dizziness Differential Diagnosis: benign paroxysmal positional vertigo, orthostatic hypotension and other (dehydration, drug use, , anemia ) Most likely diagnosis given after review of the tests above:: Methamphetamine use Dizziness Admission Indicated Admission indicated?: not indicated Admission Request Was there a request for admission?: No Disposition Plan Disposition Plan: Discharge Discharge Attestation Discharge Attestation: The patient and all family members were given an opportunity to ask questions and understood the discharge instructions. Discharge instructions specifically effects, indications for sooner follow up or return to the emergency department, and the expected course of current diagnosis. Patient condition: Stable Discharge Plan Plan Patient Disposition: HOME (Self Care) Prescriptions/Referrals Prescriptions/Med Rec: No Action rizatriptan [Maxalt-BRAKE DRUM MOLDER] 10 mg tablet,disintegrating See Rx Instructions .ROUTE .COMPLEX Qty: 30 0RF Rx Instructions: take 1 tab at onset of headache; if no relief may repeat 1 tab after at least 2 hrs; max = 3 tabs/24 hr naproxen 500 mg tablet 500 mg PO BID PRN (Reason: pain) Qty: 30 0RF ibuprofen 600 mg tablet 600 mg PO Q6H Qty: 30 0RF benzonatate 100 mg capsule 100 mg PO TID Qty: 14 0RF ibuprofen 600 mg tablet 600 mg PO Q6H Qty: 30 0RF Referrals: Blayne Ramos MD [Primary Care Provider, Family Practice] - In 1 week Problem List Clinical Impression: Methamphetamine use, Dizziness Patient/Caregiver Discharge Instructions Education Materials: Understanding Methamphetamine ..., ED Dizziness, Uncertain Cause, ED Drug Abuse Additional Instructions: Follow-up with your primary care doctor in 3 to 5 days for recheck. You can return to the emergency department sooner if symptoms worsen or if you notice any new, concerning issues. Print Language: Turkmen Stand Alone Forms: Renetta Award Info., Patient Portal Info Letter
[2025-05-16 15:59] LABS: INR 1.1 (0.9-1.3); Partial Thromboplastin Time 26.7 Seconds (22.0-36.0); Prothrombin Time 11.6 Seconds (9.0-12.2)
== END 2025-05-16 16:01 | disposition home or self-care (01) ==
PROVIDERS: Nurse Practitioner Primary Care; Emergency Provider Family Medicine; PCP Family Medicine
DX: F15.20 Other stimulant dependence, uncomplicated (principal); R42 Dizziness and giddiness; I10 Essential (primary) hypertension
CPT/HCPCS: 36415; 71045; 76817; 80053; 80307; 81001; 83735; 83880; 84484; 84702; 85025; 85610; 85730; 93005; 99283